=== PATIENT | female | born 1975 | race African-American/Black ===

== ENCOUNTER 2023-02-08 18:45 | Inpatient (IN) | payer OTHER, BC ==
[2023-02-08] MEDS ORDERED: SODIUM CHLORIDE 0.9% 500 ML 500 ML IV STA (18:53)
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
[2023-02-08 19:31] LABS: Basophils % (A) 0 %; Eosinophils # (A) 0.3 k/uL (0-0.7); Eosinophils % (A) 3 %; HCT 45.3 % (34.0-46.0); Lymphocytes # (A) 1.8 k/uL (1.0-4.8); Lymphocytes % (A) 19 %; MCH 24.5 pg (25.0-35.0); MCHC 33.1 g/dL (31.0-37.0); Microcytosis Slight; Monocytes # (A) 0.5 k/uL (0-1.0); Monocytes % (A) 5 %; Neutrophils % (A) 71 %; Platelet Count 356 k/uL (150-450); RBC 6.12 m/uL (3.80-5.40); WBC 9.8 k/uL (3.8-10.6)
[2023-02-08 19:47] LABS: ALT 22 U/L (4-34); AST 24 U/L (14-36); African American GFR (CKD) 51 (>60 ml/min/1.73 sqM); Albumin 3.8 g/dL (3.5-5.0); Alkaline Phosphatase 95 U/L (38-126); Anion Gap 13 mmol/L; Blood Urea Nitrogen 24 mg/dL (7-17); Carbon Dioxide 23 mmol/L (22-30); Chloride 96 mmol/L (98-107); Glucose 427 mg/dL (74-99); Non-African American GFR(CKD) 44 (>60 ml/min/1.73 sqM); Potassium 3.4 mmol/L (3.5-5.1); Sodium 132 mmol/L (137-145); Total Bilirubin 0.9 mg/dL (0.2-1.3); Total Protein 7.1 g/dL (6.3-8.2)
--- NOTE | 2023-02-08 20:03 | CT ---
EXAMINATION TYPE: CT brain wo con CT DLP: 1096.4 mGycm, Automated exposure control for dose reduction was used. DATE OF EXAM: 02/08/2023 7:41 PM COMPARISON: None. CLINICAL INDICATION:Female, 47 years old with history of seizure activity, seizure activity TECHNIQUE: Brain: Axial CT images of the brain were obtained with coronal and sagittal reformats created and rev iewed. Contrast used: None. Oral contrast used: None. FINDINGS: Brain: Extra-axial spaces: No abnormal extra-axial fluid collections. Ventricular system: Within normal limits Cerebral parenchyma: No acute intraparenchymal hemorrhage or mass effect. The aguayo-white junction is well differentiated. Cerebellum: Unremarkable. Mass effect: No evidence of midline shift. Intracranial vasculature: unremarkable Soft tissues: Normal. Calvarium/osseous structures: No depressed skull fracture. Paranasal sinuses and mastoid air cells: Mild scattered paranasal sinus disease. Visualized orbits: Orbital contents are intact. IMPRESSION: No acute intracranial process.
[2023-02-08 20:05] LABS: Appearance,Urine Clear (Clear); Bilirubin,Urine Negative (Negative); Blood,Urine Small (Negative); Color,Urine Light Yellow; Glucose,Urine (UA) 4+ (Negative); Hyaline Casts,Urine 1 /lpf (0-2); Ketones,Urine 1+ (Negative); Leukocyte Esterase,Urine Negative (Negative); Mucus,Urine Rare /hpf; Nitrite,Urine Negative (Negative); PH, Urine 6.5 (5.0-8.0); Protein,Urine 4+ (Negative); RBC,Urine 2 /hpf (0-5); Specific Gravity,Urine 1.019 (1.001-1.035); Squamous Epithelial Cell,Urine 1 /hpf (0-4); Urobilinogen,Urine <2.0 mg/dL (<2.0); WBC,Urine 2 /hpf (0-5)
[2023-02-08] MEDS ORDERED: POTASSIUM CHLORIDE ER 20 MEQ TAB.ER PO STA (20:20)
[2023-02-08] MEDS ORDERED: LORazepam 2 MG/ML INJ IV PRN (20:44)
[2023-02-08] MEDS ORDERED: NALOXONE 0.4 MG/ML 1 ML VIAL IV PRN (20:45)
[2023-02-08] MEDS ORDERED: ACETAMINOPHEN TAB 325 MG TAB PO PRN (20:45)
[2023-02-08] MEDS ORDERED: DEXTROSE 50% SYRINGE 50 ML IVP PRN ×2 (20:48)
[2023-02-08] MEDS ORDERED: SYMBICORT 160-4.5 MCG INHALER INHALATION PRN (20:49)
[2023-02-08 21:06] LABS: Glucose,Whole Blood 413 mg/dL (70-110)
[2023-02-08] MEDS: SODIUM CHLORIDE 0.9% 1,000 ML IV SCH (21:10)
[2023-02-08] MEDS: hydrALAZINE HCL 50 MG TAB PO SCH (21:11)
[2023-02-08] MEDS: amLODIPine 10 MG TAB PO SCH (21:11)
[2023-02-08] MEDS: INSULIN ASPART (NovoLOG) 100 UNIT/ML VIAL SQ SCH (21:13)
[2023-02-08] MEDS: LOSARTAN-HCTZ 50-12.5 MG 1 EACH TAB PO SCH (21:32)
[2023-02-08] MEDS ORDERED: hydrALAZINE HCL 20 MG/ML 1 ML VIAL IVP STA (23:11)
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
[2023-02-09 10:44] LABS: Glucose,Whole Blood 399 mg/dL (70-110)
[2023-02-09] MEDS: INSULIN ASPART (NovoLOG) 100 UNIT/ML VIAL SQ SCH ×6 (10:59→21:08)
[2023-02-09] MEDS: MONTELUKAST 10 MG TAB PO SCH (11:00)
[2023-02-09] MEDS: hydrALAZINE HCL 50 MG TAB PO SCH ×3 (11:00→22:23)
[2023-02-09] MEDS: amLODIPine 10 MG TAB PO SCH (11:00)
[2023-02-09] MEDS: LOSARTAN-HCTZ 50-12.5 MG 1 EACH TAB PO SCH (11:22)
[2023-02-09] MEDS: SODIUM CHLORIDE 0.9% 1,000 ML IV SCH ×2 (11:23→21:08)
[2023-02-09 11:59] LABS: Amphetamine Screen,Urine Not Detected (NotDetected); Barbiturate Screen,Urine Not Detected (NotDetected); Benzodiazepines Screen,Urine Not Detected (NotDetected); Cocaine Screen,Urine Not Detected (NotDetected); Methadone Screen, Urine Not Detected (NotDetected); Opiate Screen,Urine Not Detected (NotDetected); Oxycodone Screen, Urine Not Detected (NotDetected); Phencyclidine Screen,Urine Not Detected (NotDetected); Tricyclic Antidepressant,Urine Not Detected (NotDetected); Urn Cannabinoid Scrn Not Detected (NotDetected)
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
[2023-02-09 12:21] LABS: HCG,Qualitative Serum Not Detected
[2023-02-09 12:25] LABS: African American GFR (CKD) 56 (>60 ml/min/1.73 sqM); Alcohol <10 mg/dL; Anion Gap 8 mmol/L; Blood Urea Nitrogen 20 mg/dL (7-17); Calcium 9.1 mg/dL (8.4-10.2); Carbon Dioxide 27 mmol/L (22-30); Chloride 97 mmol/L (98-107); Glucose 415 mg/dL (74-99); Non-African American GFR(CKD) 49 (>60 ml/min/1.73 sqM); Potassium 3.3 mmol/L (3.5-5.1); Sodium 132 mmol/L (137-145)
[2023-02-09 12:51] LABS: Basophils % (A) 0 %; Eosinophils # (A) 0.2 k/uL (0-0.7); Eosinophils % (A) 2 %; HCT 45.7 % (34.0-46.0); HGB 14.9 gm/dL (11.4-16.0); Lymphocytes # (A) 1.9 k/uL (1.0-4.8); Lymphocytes % (A) 20 %; MCH 24.9 pg (25.0-35.0); MCHC 32.5 g/dL (31.0-37.0); MCV 76.5 fL (80.0-100.0); Mean Platelet Volume 9.1; Microcytosis Slight; Monocytes # (A) 0.4 k/uL (0-1.0); Monocytes % (A) 4 %; Neutrophils # (A) 6.9 k/uL (1.3-7.7); Neutrophils % (A) 72 %; Platelet Count 320 k/uL (150-450); RBC 5.97 m/uL (3.80-5.40); RDW 15.2 % (11.5-15.5); WBC 9.5 k/uL (3.8-10.6)
[2023-02-09 13:00] LABS: Glucose,Whole Blood 332 mg/dL (70-110)
[2023-02-09] MEDS: INSULIN DETEMIR (LEVEMIR) 100 UNIT/ML SYR SQ SCH (13:12)
[2023-02-09 16:23] LABS: Glucose,Whole Blood 214 mg/dL (70-110)
[2023-02-09 20:41] LABS: Glucose,Whole Blood 325 mg/dL (70-110)
--- NOTE | 2023-02-10 00:15 | EEG ---
ELECTROENCEPHALOGRAM REPORT RELEVANT MEDICATION: The patient is not on any antiepileptic drugs. EEG TYPE: This is a routine 21 channel EEG is performed with video using the 10/20 electrode placement system. CLINICAL HISTORY: This is a 47-year-old woman who presented to the ED because of witnessed seizure-like activity. The video EEG is obtained to evaluate for seizure epileptiform activity. DESCRIPTION: Wakefulness is only obtained. During the awake state, the posterior-dominant rhythm consists of low to moderate voltage of 10 to 11 hertz activity that is well modulated and well sustained. There is no physiological sleep architecture. There is no focal slowing. There is a moderate amount of diffuse myogenic artifact. Interictal and ictal are none. ACTIVATION PROCEDURE: Photic stimulation did not evoke a posterior driving response. There is no abnormality during the photic stimulation. Hyperventilation is not performed. CLINICAL INTERPRETATION: This is a normal routine EEG. There is no focal slowing, epileptiform discharges or seizure on the EEG. A normal routine EEG does not rule out underlying epilepsy. Clinical correlation is recommended. JAYSON / MARI: [id number] / ESTELA
[2023-02-10 06:35] LABS: Glucose,Whole Blood 286 mg/dL (70-110)
[2023-02-10] MEDS: INSULIN ASPART (NovoLOG) 100 UNIT/ML VIAL SQ SCH ×8 (06:53→21:15)
[2023-02-10] MEDS: INSULIN DETEMIR (LEVEMIR) 100 UNIT/ML SYR SQ SCH (06:53)
[2023-02-10] MEDS: SODIUM CHLORIDE 0.9% 1,000 ML IV SCH ×2 (06:55→12:31)
[2023-02-10] MEDS: amLODIPine 10 MG TAB PO SCH (08:40)
[2023-02-10] MEDS: hydrALAZINE HCL 50 MG TAB PO SCH ×3 (08:41→21:15)
[2023-02-10] MEDS: LOSARTAN-HCTZ 50-12.5 MG 1 EACH TAB PO SCH (08:41)
[2023-02-10] MEDS: METOPROLOL TARTRATE 25 MG TAB PO SCH ×2 (08:41→21:15)
[2023-02-10] MEDS: MONTELUKAST 10 MG TAB PO SCH (08:41)
[2023-02-10 08:49] LABS: African American GFR (CKD) 57 (>60 ml/min/1.73 sqM); Anion Gap 9 mmol/L; Basophils % (A) 1 %; Blood Urea Nitrogen 17 mg/dL (7-17); Calcium 7.2 mg/dL (8.4-10.2); Carbon Dioxide 21 mmol/L (22-30); Chloride 106 mmol/L (98-107); Eosinophils # (A) 0.3 k/uL (0-0.7); Eosinophils % (A) 4 %; Glucose 265 mg/dL (74-99); HCT 43.8 % (34.0-46.0); HGB 13.8 gm/dL (11.4-16.0); Hypochromasia Slight; Lymphocytes # (A) 2.2 k/uL (1.0-4.8); Lymphocytes % (A) 26 %; MCH 25.1 pg (25.0-35.0); MCHC 31.5 g/dL (31.0-37.0); MCV 79.6 fL (80.0-100.0); Mean Platelet Volume 8.7; Monocytes # (A) 0.5 k/uL (0-1.0); Monocytes % (A) 6 %; Neutrophils # (A) 5.2 k/uL (1.3-7.7); Neutrophils % (A) 63 %; Non-African American GFR(CKD) 49 (>60 ml/min/1.73 sqM); Platelet Count 308 k/uL (150-450); Potassium 2.8 mmol/L (3.5-5.1); RBC 5.51 m/uL (3.80-5.40); RDW 15.3 % (11.5-15.5); Sodium 136 mmol/L (137-145); WBC 8.3 k/uL (3.8-10.6)
[2023-02-10 11:24] LABS: Glucose,Whole Blood 317 mg/dL (70-110)
[2023-02-10] MEDS ORDERED: Potassium Replacement Protocol 1 EACH MISC MISCELLANE PRN (11:26)
[2023-02-10] MEDS: POTASSIUM CHLORIDE ER 20 MEQ TAB.ER PO SCH ×3 (12:30→14:47)
[2023-02-10 16:38] LABS: Glucose,Whole Blood 360 mg/dL (70-110)
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
[2023-02-10 20:55] LABS: Glucose,Whole Blood 267 mg/dL (70-110)
[2023-02-11 06:39] LABS: Glucose,Whole Blood 340 mg/dL (70-110)
[2023-02-11] MEDS: hydrALAZINE HCL 50 MG TAB PO SCH ×3 (06:54→21:54)
[2023-02-11] MEDS: METOPROLOL TARTRATE 25 MG TAB PO SCH (06:54)
[2023-02-11] MEDS: amLODIPine 10 MG TAB PO SCH (06:54)
[2023-02-11] MEDS ORDERED: INSULIN DETEMIR (LEVEMIR) 100 UNIT/ML SYR SQ SCH (07:00)
[2023-02-11] MEDS: INSULIN DETEMIR (LEVEMIR) 100 UNIT/ML SYR SQ SCH (07:43)
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
--- NOTE | 2023-02-11 09:40 | US ---
EXAMINATION TYPE: US renal artery duplex complet DATE OF EXAM: 02/11/2023 COMPARISON: NONE CLINICAL INDICATION: Female, 47 years old with history of htn uncontrolled; HTN MEASUREMENTS: RENAL SIZE: Rt Kidney: 12.8 x 4.7 x 4.6 cm Lt Kidney: 11.7 x 5.2 x 3.9 cm RESISTANCE INDEX Right: 0.67 Left: 0.63 RA/AO RATIO (< 3.5 ) Right: 2.1 Left: 1.5 RA VELOCITY ( < 180 cm/s) Right: 150.1 Left: 111.2 No hydronephrosis, solid mass, or nephrolithiasis involving both kidneys. IMPRESSION: No ultrasound evidence for renal artery stenosis.
[2023-02-11 09:43] LABS: Glucose,Whole Blood 286 mg/dL (70-110)
[2023-02-11] MEDS: SODIUM CHLORIDE 0.9% 1,000 ML IV SCH (09:45)
[2023-02-11] MEDS: LOSARTAN-HCTZ 50-12.5 MG 1 EACH TAB PO SCH (09:46)
[2023-02-11] MEDS: METOPROLOL TARTRATE 50 MG TAB PO SCH ×2 (09:46→21:55)
[2023-02-11] MEDS: MONTELUKAST 10 MG TAB PO SCH (09:46)
[2023-02-11] MEDS: INSULIN ASPART (NovoLOG) 100 UNIT/ML VIAL SQ SCH ×7 (09:47→21:55)
[2023-02-11 12:26] LABS: Glucose,Whole Blood 246 mg/dL (70-110)
[2023-02-11 12:28] LABS: ALT 19 U/L (4-34); AST 21 U/L (14-36); African American GFR (CKD) 48 (>60 ml/min/1.73 sqM); Albumin 3.5 g/dL (3.5-5.0); Albumin/Globulin Ratio 1.1; Alkaline Phosphatase 70 U/L (38-126); Anion Gap 7 mmol/L; Blood Urea Nitrogen 19 mg/dL (7-17); Calcium 9.2 mg/dL (8.4-10.2); Carbon Dioxide 28 mmol/L (22-30); Chloride 101 mmol/L (98-107); Globulin 3.1 g/dL; Glucose 268 mg/dL (74-99); Non-African American GFR(CKD) 42 (>60 ml/min/1.73 sqM); Potassium 3.6 mmol/L (3.5-5.1); Sodium 136 mmol/L (137-145); Total Bilirubin 1.1 mg/dL (0.2-1.3); Total Protein 6.6 g/dL (6.3-8.2)
--- NOTE | 2023-02-11 13:06 | MR ---
EXAMINATION TYPE: MR brain wo/w con DATE OF EXAM: 02/11/2023 11:25 AM CLINICAL INDICATION:Female, 47 years old with history of seizure COMPARISON: CT 02/08/2023 TECHNIQUE: Multi planar, multi sequence imaging was performed through the brain including: T1, T2, In version recovery, susceptibility weighted imaging and gradient echo imaging and Diffusion weighted im aging. The patient was then given intravenous contrast and multi planar, T1 fat-saturation images wer e obtained. IV Contrast: 11 cc Gadavist FINDINGS: Motion limited exam. Prior injury to the body of the corpus callosum noted. The aguayo-white junctions, ventricular system, basal cisterns appear unremarkable. Diffusion-weighted imaging shows no evidence of restricted diffusion to suggest acute/subacute infarct. Intracranial art erial flow voids are maintained. Midline structures show no abnormality. Minimal scattered foci of hi gh T2 signal intensity are seen within the periventricular white matter. The susceptibility weighted images reveal right frontal lobe blooming artifact foci suggestive of micro-hemorrhage. After adminis tration of gadolinium, no abnormal enhancement is seen. The bone marrow signal is within normal limits. Paranasal sinuses and mastoid air cells: Mild scattered paranasal sinus disease. Visualized orbits: Orbital contents are intact. IMPRESSION: 1. No evidence of intracranial mass, acute/subacute infarct, or abnormal enhancement. 2. Prior injury to the body of the corpus callosum. 3. Minimal nonspecific white matter changes, likely related to small vessel ischemic disease MRI
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
[2023-02-11 14:59] VITALS: BMI 39.5
[2023-02-11 16:33] LABS: Glucose,Whole Blood 201 mg/dL (70-110)
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
[2023-02-11 21:46] LABS: Glucose,Whole Blood 210 mg/dL (70-110)
[2023-02-12 05:52] LABS: Glucose,Whole Blood 276 mg/dL (70-110)
[2023-02-12 07:31] VITALS: RESP 17
[2023-02-12 07:39] VITALS: BP 178/113; PULSE 84; TEMP 98.4
[2023-02-12] MEDS: INSULIN ASPART (NovoLOG) 100 UNIT/ML VIAL SQ SCH ×4 (07:39→12:36)
[2023-02-12] MEDS: INSULIN DETEMIR (LEVEMIR) 100 UNIT/ML SYR SQ SCH (07:39)
[2023-02-12] MEDS: LOSARTAN-HCTZ 50-12.5 MG 1 EACH TAB PO SCH (07:40)
[2023-02-12] MEDS: METOPROLOL TARTRATE 50 MG TAB PO SCH (07:40)
[2023-02-12] MEDS: amLODIPine 10 MG TAB PO SCH (07:40)
[2023-02-12] MEDS: MONTELUKAST 10 MG TAB PO SCH (07:40)
[2023-02-12] MEDS: hydrALAZINE HCL 50 MG TAB PO SCH (07:40)
[2023-02-12 11:38] LABS: Glucose,Whole Blood 241 mg/dL (70-110)
== END 2023-02-12 15:36 | disposition home or self-care (01) | DRG 101 ==
LOC: EC 18:45 → 4SSUR 20:45
PROVIDERS: ADMIT Hospitalist; ATTEND Hospitalist
PROC: 4A10X4Z Monitoring of Central Nervous Electrical Activity, External Approach (ICD-10-PCS; principal; 2023-02-09)
DX: R56.9 Unspecified convulsions (principal); N17.9 Acute kidney failure, unspecified; Z88.5 Allergy status to narcotic agent; E66.9 Obesity, unspecified; E11.65 Type 2 diabetes mellitus with hyperglycemia; I12.9 Hypertensive chronic kidney disease with stage 1 through stage 4 chronic kidney disease, or unspecified chronic kidney disease; N18.9 Chronic kidney disease, unspecified; I16.0 Hypertensive urgency; Z68.39 Body mass index [BMI] 39.0-39.9, adult; Z79.4 Long term (current) use of insulin; Z91.148 Patient's other noncompliance with medication regimen for other reason; Z79.899 Other long term (current) drug therapy
CPT/HCPCS: 36415; 70450; 70553; 80048; 80053; 80306; 80320; 81001; 83036; 83735; 84132; 84703; 85025; 93005; 93975; 94760; 95816; 96361; 96374; 99285